=== PATIENT | male | born 1955 | race Caucasian/White ===

== ENCOUNTER → 2017-11-10 11:00 | Outpatient (CLI) | payer OTHER, SELFPAY ==
[2017-11-10 15:09] LABS: Alanine Aminotransferase 27 IU/L (21-72); Albumin 4.2 g/dL (3.5-5.0); Albumin Globulin Ratio 1.4 (1.0-2.8); Alkaline Phosphatase 66 U/L (38-126); Aspartate Aminotransferase 21 IU/L (17-59); BUN Creatinine Ratio 16.4 (6-22); Bilirubin Total 0.6 mg/dL (0.2-1.3); Blood Urea Nitrogen 23 mg/dL (9-20); Calcium 9.1 mg/dL (8.4-10.2); Carbon Dioxide 28 mmol/L (22-32); Chloride 104 mmol/L (98-107); Cholesterol 137 mg/dL (140-199); Estimated Glomerular Filt Rate 51.2 mL/min (>60); Globulin 2.9 g/dL (1.7-4.1); Glucose 73 mg/dL (80-110); HDL Cholesterol 44 mg/dL (40-60); HEMOLYSIS 17 (0-50); LDL Cholesterol Calculated 80 mg/dL (<100); Potassium 4.4 mmol/L (3.4-5.1); Sodium 142 mmol/L (137-145); Total Protein 7.1 g/dL (6.3-8.2); Triglycerides 65 mg/dL (35-150)
[2017-11-10 19:50] LABS: Creatinine Urine Random 261.3 mg/dL
[2017-11-10 19:54] LABS: Microalbumi Creatinin Ratio Ur 15.3 ug/mg CR (<30)
== END ==
PROVIDERS: Family Provider Physician Assistant; PCP Physician Assistant; Visit Provider Physician Assistant
DX: I10 Essential (primary) hypertension (principal); N28.9 Disorder of kidney and ureter, unspecified; E78.5 Hyperlipidemia, unspecified; Z12.5 Encounter for screening for malignant neoplasm of prostate
CPT/HCPCS: 36415; 80053; 80061; 82043; 82570; G0103

== ENCOUNTER → 2018-01-05 10:55 | Outpatient (CLI) | payer OTHER, SELFPAY ==
[2018-01-05 11:33] LABS: BUN Creatinine Ratio 16.9 (6-22); Blood Urea Nitrogen 22 mg/dL (9-20); Calcium 9.1 mg/dL (8.4-10.2); Carbon Dioxide 28 mmol/L (22-32); Chloride 106 mmol/L (98-107); Estimated Glomerular Filt Rate 55.8 mL/min (>60); Glucose 96 mg/dL (80-110); HEMOLYSIS 39 (0-50); Potassium 4.8 mmol/L (3.4-5.1); Sodium 143 mmol/L (137-145); Uric Acid 5.1 mg/dL (3.5-8.5)
== END ==
PROVIDERS: PCP Physician Assistant; Visit Provider Physician Assistant
DX: N28.9 Disorder of kidney and ureter, unspecified (principal); I10 Essential (primary) hypertension; E79.0 Hyperuricemia without signs of inflammatory arthritis and tophaceous disease
CPT/HCPCS: 36415; 80048; 84550

== ENCOUNTER → 2018-08-17 10:45 | Outpatient (CLI) | payer OTHER, SELFPAY ==
[2018-08-17 12:28] LABS: Alanine Aminotransferase 29 IU/L (21-72); Albumin 4.4 g/dL (3.5-5.0); Albumin Globulin Ratio 1.6 (1.0-2.8); Alkaline Phosphatase 68 U/L (38-126); Aspartate Aminotransferase 26 IU/L (17-59); BUN Creatinine Ratio 17.9 (6-22); Bilirubin Total 0.9 mg/dL (0.2-1.3); Blood Urea Nitrogen 25 mg/dL (9-20); Calcium 9.7 mg/dL (8.4-10.2); Carbon Dioxide 27 mmol/L (22-32); Chloride 103 mmol/L (98-107); Cholesterol 186 mg/dL (140-199); Globulin 2.8 g/dL (1.7-4.1); Glucose 86 mg/dL (80-110); HDL Cholesterol 56 mg/dL (40-60); HEMOLYSIS < 15 (0-50); LDL Cholesterol Calculated 115 mg/dL (<100); Potassium 4.7 mmol/L (3.4-5.1); Sodium 139 mmol/L (137-145); Total Protein 7.2 g/dL (6.3-8.2); Triglycerides 75 mg/dL (35-150)
[2018-08-17 12:30] LABS: Creatinine Urine Random 264.6 mg/dL
[2018-08-17 12:32] LABS: Microalbumi Creatinin Ratio Ur 6.8 ug/mg CR (<30); Microalbumin Urine Random 1.8 mg/dL (0-1.6)
== END ==
PROVIDERS: Family Provider Physician Assistant; PCP Physician Assistant; Visit Provider Physician Assistant
DX: E78.5 Hyperlipidemia, unspecified (principal); I10 Essential (primary) hypertension; N28.9 Disorder of kidney and ureter, unspecified
CPT/HCPCS: 36415; 80053; 80061; 82043; 82570; 84550

== ENCOUNTER → 2019-05-03 14:48 | Outpatient (CLI) | payer OTHER, SELFPAY ==
[2019-05-03 17:47] LABS: Hemoglobin A1C% w Est Avg Glu 5.6 % (4.0-6.0)
[2019-05-03 17:54] LABS: Alanine Aminotransferase 25 IU/L (<50); Albumin 4.3 g/dL (3.5-5.0); Albumin Globulin Ratio 1.5 (1.0-2.8); Alkaline Phosphatase 71 U/L (38-126); Aspartate Aminotransferase 26 IU/L (17-59); Bilirubin Total 0.5 mg/dL (0.2-1.3); Blood Urea Nitrogen 28 mg/dL (9-20); Calcium 9.6 mg/dL (8.4-10.2); Carbon Dioxide 29 mmol/L (22-32); Chloride 105 mmol/L (98-107); Globulin 2.8 g/dL (1.7-4.1); Glucose 80 mg/dL (80-110); HEMOLYSIS < 15 (0-50); Potassium 4.8 mmol/L (3.4-5.1); Sodium 142 mmol/L (137-145); Total Protein 7.1 g/dL (6.3-8.2)
== END ==
PROVIDERS: PCP Physician Assistant; Visit Provider Family Medicine
DX: Z76.89 Persons encountering health services in other specified circumstances (principal)
CPT/HCPCS: 36415; 80053; 83036; G0103

== ENCOUNTER → 2019-05-04 10:48 | Outpatient (CLI) | payer OTHER, SELFPAY ==
[2019-05-04 12:31] LABS: Cholesterol 160 mg/dL (140-199); HDL Cholesterol 52 mg/dL (40-60); LDL Cholesterol Calculated 90 mg/dL (<100); Triglycerides 89 mg/dL (35-150)
== END ==
PROVIDERS: PCP Physician Assistant; Visit Provider Family Medicine
DX: Z76.89 Persons encountering health services in other specified circumstances (principal)
CPT/HCPCS: 36415; 80061

== ENCOUNTER → 2019-10-04 11:05 | Outpatient (CLI) | payer MEDICARE, OTHER, SELFPAY ==
[2019-10-04 12:52] LABS: Alanine Aminotransferase 24 IU/L (<50); Albumin 4.3 g/dL (3.5-5.0); Albumin Globulin Ratio 1.6 (1.0-2.8); Alkaline Phosphatase 65 U/L (38-126); Aspartate Aminotransferase 29 IU/L (17-59); BUN Creatinine Ratio 16.2 (6-22); Bilirubin Total 0.9 mg/dL (0.2-1.3); Blood Urea Nitrogen 23 mg/dL (9-20); Calcium 9.7 mg/dL (8.4-10.2); Carbon Dioxide 26 mmol/L (22-32); Chloride 106 mmol/L (98-107); Cholesterol 163 mg/dL (140-199); Globulin 2.7 g/dL (1.7-4.1); Glucose 93 mg/dL (80-110); HDL Cholesterol 54 mg/dL (40-60); HEMOLYSIS < 15 (0-50); LDL Cholesterol Calculated 97 mg/dL (<100); Potassium 4.9 mmol/L (3.4-5.1); Sodium 138 mmol/L (137-145); Triglycerides 61 mg/dL (35-150)
== END ==
PROVIDERS: PCP Family Medicine; Referring Provider Family Medicine; Visit Provider Family Medicine
DX: E78.5 Hyperlipidemia, unspecified (principal); I10 Essential (primary) hypertension
CPT/HCPCS: 36415; 80053; 80061

== ENCOUNTER 2021-01-18 13:11 | Emergency (ER) | payer MEDICARE, OTHER, SELFPAY ==
[2021-01-18 13:18] VITALS: BP 137/85; PULSE 76; RESP 14; TEMP 36.4; O2SAT 100; BMI 27.5
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
[2021-01-18] MEDS: TET,DIPH,PERTUSS(ACELL),VAC/PF 0.5 ML SYRINGE IM (13:42)
--- NOTE | 2021-01-18 13:47 | DI.RAD.S_ITS ---
PROCEDURE: XR FINGER LT MIN 2V INDICATIONS: deep laceration, foreign body? TECHNIQUE: AP hand, 2 views of the 3rd finger(s) acquired. COMPARISON: None. FINDINGS: Bones: No fractures or dislocations. No suspicious bony lesions. Soft tissues: No suspicious soft tissue calcifications. IMPRESSION: No radiopaque foreign body. No visualized acute fracture or dislocation. However, if clinical concern and/or pain persist, short interval imaging followup in 7-10 days is recommended, as occult injury cannot be definitively excluded. Dictated by: Opal Payne M.D. on 01/18/2021 at 14:07 Approved by: Opal Payne M.D. on 01/18/2021 at 14:07
[2021-01-18] MEDS: LIDO 1%/SOD BICARB 8.4% (10ML) 10 ML SYRINGE INJ (13:48)
[2021-01-18 14:24] VITALS: BP 136/80; PULSE 70; RESP 18; O2SAT 96
== END 2021-01-18 14:26 | disposition home or self-care (01) ==
PROVIDERS: Emergency Provider Emergency Medicine; PCP Family Medicine
DX: S61.213A Laceration without foreign body of left middle finger without damage to nail, initial encounter (principal); W26.9XXA Contact with unspecified sharp object(s), initial encounter; Z23 Encounter for immunization
CPT/HCPCS: 12001; 64450; 73140; 90471; 99283; 99284; 90715

== ENCOUNTER → 2022-06-03 11:58 | Outpatient (CLI) | payer MEDICARE, OTHER, SELFPAY ==
[2022-06-03 13:29] LABS: Cholesterol 222 mg/dL (140-199); HDL Cholesterol 61 mg/dL (40-60); LDL Cholesterol Calculated 142 mg/dL (<100); Triglycerides 97 mg/dL (35-150)
[2022-06-03 13:30] LABS: Alanine Aminotransferase 22 IU/L (<50); Albumin 4.3 g/dL (3.5-5.0); Albumin Globulin Ratio 1.3 (1.0-2.8); Alkaline Phosphatase 67 U/L (38-126); Aspartate Aminotransferase 23 IU/L (17-59); BUN Creatinine Ratio 17.6 (6-22); Bilirubin Total 0.8 mg/dL (0.2-1.3); Blood Urea Nitrogen 26 mg/dL (9-20); Calcium 9.1 mg/dL (8.4-10.2); Carbon Dioxide 29 mmol/L (22-32); Chloride 105 mmol/L (98-107); Estimated Glomerular Filt Rate 52 mL/min (>60); Globulin 3.3 g/dL (1.7-4.1); Glucose 91 mg/dL (80-110); HEMOLYSIS < 15 (0-50); Potassium 4.5 mmol/L (3.4-5.1); Sodium 141 mmol/L (137-145); Total Protein 7.6 g/dL (6.3-8.2)
[2022-06-03 14:02] LABS: Prostate Specific Antigen Scrn 1.35 ng/mL (0.1-4.0)
== END ==
PROVIDERS: PCP Family Medicine; Referring Provider Family Medicine; Visit Provider Family Medicine
DX: I10 Essential (primary) hypertension (principal); Z12.5 Encounter for screening for malignant neoplasm of prostate; K21.9 Gastro-esophageal reflux disease without esophagitis; N28.9 Disorder of kidney and ureter, unspecified; Z00.00 Encounter for general adult medical examination without abnormal findings
CPT/HCPCS: 36415; 80053; 80061; G0103

== ENCOUNTER → 2022-06-25 14:46 | Outpatient (CLI) | payer MEDICARE, OTHER, SELFPAY ==
--- NOTE | 2022-06-25 14:49 | DI.RAD.S_ITS ---
PROCEDURE: XR KNEE LT 3V INDICATIONS: eval L knee pain TECHNIQUE: 3 views of the knee were acquired. COMPARISON: None. FINDINGS: Bones: Overall mild arthrosis, with osteophytes and early joint space loss. No displaced fracture. No dislocation. Soft tissues: No significant joint effusion. IMPRESSION: Mild arthrosis. No acute radiographic abnormality. If there is high concern for further derangement, consider MRI evaluation. Dictated by: Kamran Damon M.D. on 06/26/2022 at 10:55 Approved by: Kamran Damon M.D. on 06/26/2022 at 10:56
--- NOTE | 2022-06-25 18:42 | DI.US.S_ITS ---
PROCEDURE: US PERIPH VENOUS LOW EXTREM LT INDICATIONS: eval LLE pain/swelling, R/O DVT TECHNIQUE: Real-time imaging, as well as color and pulse Doppler interrogation, were performed of the lower extremity deep veins from the inguinal ligament to the popliteal fossa. COMPARISON: None. FINDINGS: The common femoral, femoral and popliteal veins are normally compressible, and free of intraluminal thrombus. Color and pulse Doppler demonstrate normal phasic intraluminal flow. There is normal augmentation response to distal compression maneuver. Small Jean cyst measuring 3.2 x 1.2 x 1.4 cm. IMPRESSION: 1. No DVT in the left lower extremity. 2. Small Jean cyst. Dictated by: Maria Esther Knutson M.D. on 06/25/2022 at 21:30 Approved by: Maria Esther Knutson M.D. on 06/25/2022 at 21:30
== END ==
PROVIDERS: PCP Family Medicine; Referring Provider Registered Nurse Diabetes Educator; Visit Provider Registered Nurse Diabetes Educator
DX: M17.12 Unilateral primary osteoarthritis, left knee (principal); M71.22 Synovial cyst of popliteal space [Baker], left knee; M79.605 Pain in left leg; M25.562 Pain in left knee
CPT/HCPCS: 73562; 93971

== ENCOUNTER 2023-02-18 10:53 | Emergency (ER) | payer MEDICARE, OTHER, SELFPAY ==
[2023-02-18 10:59] VITALS: BP 163/80; PULSE 62; RESP 16; TEMP 36.6; O2SAT 97; BMI 27.2
[2023-02-18 11:19] VITALS: BP 141/99; PULSE 65; O2SAT 95
--- NOTE | 2023-02-18 11:20 | ED_ITS ---
HPI - Male Genitourinary General Chief complaint: Urogenital-Male Stated complaint: sent by DR schaffer kidney stones Time Seen by Provider: 02/18/23 11:02 Source: patient Mode of arrival: Ambulatory History of Present Illness HPI Narrative: 67-year-old male presents for intermittent sharp, nonradiating flank pain. Patient states that last night he had a sharp left-sided flank pain, however several months ago he had a similar pain on the right flank. He spoke to his doctor, stating he was concerned that he may have a kidney stone. His doctor referred him to the emergency department for evaluation. Currently pain free. Denies nausea, vomiting, decreased urination, hematuria. No medications taken at home for symptoms. Related Data Home Medications Medication Instructions Recorded Confirmed aspirin 81 mg tablet,delayed 81 mg PO QDAY #30 tabs 12/26/15 12/20/22 release docusate sodium 50 mg capsule 50 mg PO DAILY 05/03/19 12/20/22 Previous Rx's Medication Instructions Recorded famotidine 20 mg tablet (Acid 20 mg PO DAILY #90 tabs 05/30/22 Controller) metoprolol tartrate 25 mg tablet See Rx Instructions .Route 05/30/22 .COMPLEX #180 tabs nifedipine 30 mg tablet,extended See Rx Instructions .Route 05/30/22 release 24 hr .COMPLEX #90 tabs olmesartan 40 mg tablet 40 mg PO DAILY #90 tabs 05/30/22 lovastatin 20 mg tablet 20 mg PO QPM hyperlipidemia #90 06/26/22 tabs tamsulosin 0.4 mg capsule (Flomax) 0.4 mg PO DAILY #30 caps 02/18/23 Allergies Allergy/AdvReac Type Severity Reaction Status Date / Time amlodipine [AMLODIPINE] Allergy Intermediate Peripheral Verified 02/18/23 11:03 edema hydrochlorothiazide Allergy Intermediate elevated Verified 02/18/23 11:03 [HYDROCHLOROTHIAZIDE] creatinine NSAIDS (Non-Steroidal Allergy Intermediate elevated Verified 02/18/23 11:03 Anti-Inflamma creatinine [NSAIDS (NON-STEROIDAL ANTI-INFLAMMA] simvastatin [SIMVASTATIN] AdvReac Intermediate Diffuse Verified 02/18/23 11:03 myalgias Review of Systems Review of Systems Narrative: Negative except as noted above Patient History Medical History Esophagitis, reflux (~03/2015) GERD (gastroesophageal reflux disease) Hyperlipemia (Unknown) Hypertension (Unknown) Left knee pain Preventative health care Renal insufficiency (~03/2017) Surgical History Hx of hernia repair (Unknown) Social History Smoking Status: Former smoker second hand exposure: No alcohol intake: current substance use type: does not use Smoking Status: Former smoker alcohol intake frequency: holidays/special occasions only Substance Use Type: marijuana Exam Initial Vital Signs Initial Vital Signs: Vital Signs Temperature 97.9 F 02/18/23 10:59 Pulse Rate 62 02/18/23 10:59 Respiratory Rate 16 02/18/23 10:59 Blood Pressure 163/80 H 02/18/23 10:59 Pulse Oximetry 97 02/18/23 10:59 Oxygen Delivery Method Room Air 02/18/23 10:59 Const: Awake, alert, no acute distress, nontoxic appearing Eyes: PERRL, EOMI, conjunctiva normal ENT: Atraumatic, dentition normal, mucous membranes moist Cardiac: regular rate, regular rhythm RESP: unlabored, clear bilaterally, no wheezing GI: Atraumatic, soft, nontender, nondistended, no rebound, no guarding MSK: Atraumatic, full range of motion, pulses equal Skin: Warm, Dry, intact, no rashes Neuro: AO x3, CN II-XII grossly intact, moves all extremities Psych: affect normal, mood normal, not suicidal, not homicidal Course Course Course Narrative: Well appearing patient with intermittent flank pain. Currently pain free, physical exam is unremarkable, no obvious abnormalities. Will order labs, urine, CT scan. Patient declines pain medication at this time. Orders Ordered: ED Orders 02/18/23 11:08 CBC Auto Diff [Complete Blood Count AUTO DIFF] Stat CMP [Comprehensive Metabolic Panel] Stat 02/18/23 11:14 Ictotest Urine Stat UA Complete [Urinalysis and Microscopic] Stat 02/18/23 11:40 CT abdomen pelvis wo con Stat Reevaluation(s) Reevaluation #1: Labs negative for acute findings. Patient appears to have mild chronic renal insufficiency, at baseline. CT shows 1-2mm nonobstructing renal stones, no other acute findings. Question if patient is passing small stones, however since none are currently in the ureter cannot say for sure. Patient informed of all lab and imaging results. Counseled to take tylenol and continue to drink plenty of fluids. Recommended flomax in case patient does start to pass kidney stones. Urology follow up recommended and referral provided. Vital Signs Vital signs: Vital Signs - 8 hr 02/18/23 10:59 02/18/23 11:19 02/18/23 11:19 Temperature 97.9 F Pulse Rate 62 65 Respiratory Rate 16 Blood Pressure 163/80 H 141/99 H Pulse Oximetry 97 95 Oxygen Delivery Method Room Air 02/18/23 11:30 02/18/23 11:30 02/18/23 11:45 Temperature Pulse Rate 64 Respiratory Rate Blood Pressure 134/86 130/82 Pulse Oximetry 93 Oxygen Delivery Method 02/18/23 11:45 02/18/23 12:00 02/18/23 12:00 Temperature Pulse Rate 69 67 Respiratory Rate Blood Pressure 139/86 Pulse Oximetry 95 94 Oxygen Delivery Method 02/18/23 12:30 02/18/23 12:30 Temperature Pulse Rate 62 Respiratory Rate Blood Pressure 154/91 H Pulse Oximetry 96 Oxygen Delivery Method MDM - Male Genitourinary Differential Diagnosis Differential diagnosis: Likely urinary tract infection, acute retention of urine and inguinal hernia Lab Data 02/18/23 11:08 02/18/23 11:08 Labs: Lab Results 02/18/23 02/18/23 Range/Units 11:08 11:14 WBC 7.3 (4.5-11.0) X10^3/uL RBC 5.02 (4.5-5.9) X10^6/uL Hgb 15.0 (13.5-17.5) g/dL Hct 44.6 (41-53) % MCV 88.9 (80-100) fL MCH 29.9 (26-34) PG MCHC 33.6 (30-36) % RDW 14.4 (11.6-14.8) % Plt Count 232 (150-400) X10^3/uL Neut % (Auto) 69.4 (50-75) % Lymph % (Auto) 13.5 L (25-40) % [place] % (Auto) 11.2 (3-14) % Eos % (Auto) 5.4 H (2-4) % Baso % (Auto) 0.5 (0-2) % Neut # (Auto) 5000 (1904-1938) /uL Lymph # (Auto) 1000 L (4806-1051) /uL [place] # (Auto) 800 (0-900) /uL Eos # (Auto) 400 (0-450) /uL Baso # (Auto) 0 (0-100) /uL Sodium 140 (137-145) mmol/L Potassium 4.5 (3.4-5.1) mmol/L Chloride 104 (98-107) mmol/L Carbon Dioxide 29 (22-32) mmol/L BUN 26 H (9-20) mg/dL Creatinine 1.54 H (0.66-1.25) mg/dL Estimated GFR 49 L (>60) mL/min BUN/Creatinine Ratio 16.9 (6-22) Glucose 109 (80-110) mg/dL Calcium 9.9 (8.4-10.2) mg/dL Total Bilirubin 0.7 (0.2-1.3) mg/dL AST 24 (17-59) IU/L ALT 18 (<50) IU/L Alkaline Phosphatase 56 (38-126) U/L Total Protein 7.5 (6.3-8.2) g/dL Albumin 4.3 (3.5-5.0) g/dL Globulin 3.2 (1.7-4.1) g/dL Albumin/Globulin Ratio 1.3 (1.0-2.8) Urine Color Yellow Urine Appearance Clear Urine pH 5.0 (4.5-8.0) Ur Specific [place] 1.025 (1.000-1.035) Urine Protein Trace H (Negative) Urine Glucose (UA) Negative (Negative) g/dL Urine Ketones Trace H (NEGATIVE) Urine Occult Blood Negative (Negative) Urine Nitrate Negative (Negative) Urine Bilirubin Negative (NEGATIVE) Ur Bilirubin Confirm Negative (Negative) Urine Urobilinogen 0.2 (0.2) E.U./dL Ur Leukocyte Esterase Negative (NEGATIVE) Urine RBC None seen (0-5/HPF) Urine WBC 0-1/hpf (0-5/HPF) Ur Squamous Epith Cells 0-1 /hpf (0-5/HPF) Urine Bacteria None seen (None) Urine Mucus 1+ H (Negative) Ur Culture Indicated? Cult not indicated Urine Dip Bedside Urine Glucose Negative Bedside Urine Bilirubin + 1 Bedside Urine Ketone - Negative Urine Specific [place] 1.025 Bedside Urine Occult Blood - Negative Bedside Urine pH 6.0 Bedside Urine Protein +/- 15 Bedside Urine Urobilinogen - Negative Bedside Urine Nitrite - Negative Bedside Urine Leukocytes +/- 15 Esterase Discharge Plan Departure Patient Disposition: Home Clinical Impression: Bilateral renal stones Instructions: DI for Kidney Stones Prescriptions: New tamsulosin [Flomax] 0.4 mg capsule 0.4 mg PO DAILY Qty: 30 0RF No Action aspirin 81 MG tablet,delayed release (DR/EC) 81 mg PO QDAY Qty: 30 lovastatin 20 mg tablet 20 mg PO QPM MDD 20mg Qty: 90 3RF Rx Instructions: Take one tablet by mouth at bedtime docusate sodium 50 mg capsule 50 mg PO DAILY famotidine [Acid Controller] 20 mg tablet 20 mg PO DAILY Qty: 90 3RF metoprolol tartrate 25 mg tablet See Rx Instructions .ROUTE .COMPLEX Qty: 180 3RF Dose Instruction: TAKE 1 TABLET BY MOUTH TWICE DAILY Rx Instructions: TAKE 1 TABLET BY MOUTH TWICE DAILY nifedipine 30 mg tablet extended release 24hr See Rx Instructions .ROUTE .COMPLEX Qty: 90 3RF Dose Instruction: TAKE 1 TABLET BY MOUTH DAILY Rx Instructions: TAKE 1 TABLET BY MOUTH DAILY olmesartan 40 mg tablet 40 mg PO DAILY Qty: 90 3RF Referrals: Dustin Hare DO [Primary Care Provider] - Abisai Mathur MD [Physician] - Stand Alone Forms: Patient Portal/API
[2023-02-18 11:25] LABS: Add Manual Diff / Slide Review NO; Basophils Absolute Auto 0 /uL (0-100); Basophils Percent Auto 0.5 % (0-2); Eosinophils Absolute Auto 400 /uL (0-450); Eosinophils Percent Auto 5.4 % (2-4); Hematocrit 44.6 % (41-53); Lymphocytes Absolute Auto 1000 /uL (1100-4500); Lymphocytes Percent Auto 13.5 % (25-40); Mean Corpuscular HGB Conc 33.6 % (30-36); Mean Corpuscular Hemoglobin 29.9 PG (26-34); Mean Corpuscular Volume 88.9 fL (80-100); Monocytes Absolute Auto 800 /uL (0-900); Monocytes Percent Auto 11.2 % (3-14); Neutrophils Absolute Auto 5000 /uL (1500-7000); Neutrophils Percent Auto 69.4 % (50-75); Platelet Count 232 X10^3/uL (150-400); Red Blood Cell Count 5.02 X10^6/uL (4.5-5.9); Red Cell Distribution Width 14.4 % (11.6-14.8); White Blood Cell Count 7.3 X10^3/uL (4.5-11.0)
[2023-02-18 11:26] LABS: Appearance Urine UA CLEAR; Bilirubin Urine UA NEGATIVE (NEGATIVE); Color Urine UA YELLOW; Glucose Urine UA NEGATIVE (Negative); Ketones Urine UA TRACE (NEGATIVE); Leukocyte Esterase Urine UA NEGATIVE (NEGATIVE); Nitrite Urine UA NEGATIVE (Negative); Occult Blood Urine UA NEGATIVE (Negative); Protein Urine UA TRACE (Negative); Specific Gravity Urine UA 1.025 (1.000-1.035); Urobilinogen Urine UA 0.2 E.U./dL (0.2)
[2023-02-18 11:27] LABS: Ictotest Urine Negative (Negative)
[2023-02-18 11:30] VITALS: BP 134/86; PULSE 64; O2SAT 93
[2023-02-18 11:31] LABS: Bacteria Urine None Seen; Culture Indicated Urine Cult Not Indicated; Mucus Urine 1+ (Negative); RBC Urine None Seen (0-5/HPF); Squamous Epithelial Cell Urine 0-1 /HPF (0-5/HPF); WBC Urine 0-1/HPF (0-5/HPF)
[2023-02-18 11:37] LABS: Alanine Aminotransferase 18 IU/L (<50); Albumin 4.3 g/dL (3.5-5.0); Albumin Globulin Ratio 1.3 (1.0-2.8); Alkaline Phosphatase 56 U/L (38-126); Aspartate Aminotransferase 24 IU/L (17-59); BUN Creatinine Ratio 16.9 (6-22); Bilirubin Total 0.7 mg/dL (0.2-1.3); Blood Urea Nitrogen 26 mg/dL (9-20); Calcium 9.9 mg/dL (8.4-10.2); Carbon Dioxide 29 mmol/L (22-32); Chloride 104 mmol/L (98-107); Estimated Glomerular Filt Rate 49 mL/min (>60); Globulin 3.2 g/dL (1.7-4.1); Glucose 109 mg/dL (80-110); HEMOLYSIS 28 (0-50); Potassium 4.5 mmol/L (3.4-5.1); Sodium 140 mmol/L (137-145); Total Protein 7.5 g/dL (6.3-8.2)
--- NOTE | 2023-02-18 11:40 | DI.CT.S_ITS ---
PROCEDURE: CT ABDOMEN PELVIS WO CON INDICATIONS: Left flank pain, poss stone? TECHNIQUE: Axial sections were acquired from the lung bases to the pubic symphysis. Coronal and sagittal reformats were performed. For radiation dose reduction, the following was used: automated exposure control, adjustment of mA and/or kV according to patient size. COMPARISON: None. FINDINGS: Image quality: Excellent. Lung bases: Unremarkable. Heart: No significant findings. URINARY: Right Kidney: Nonobstructive punctate 1-2 mm calculus in the superior pole. Extrarenal pelvis. No hydronephrosis Right Ureter: No hydroureter. Left Kidney: Nonobstructed punctate 1-2 mm calculus in the inferior pole. Extra renal pelvis. No hydronephrosis Left Ureter: No hydroureter. Bladder: Bladder is decompressed limiting evaluation. No intraluminal calcified stones. ABDOMEN: Liver: Left hepatic lobe 3.9 cm simple cyst. Right hepatic lobe punctate calcification. Gallbladder: Unremarkable. Biliary ducts: Unremarkable. Pancreas: Unremarkable. Spleen: Unremarkable. Adrenal Glands: Unremarkable. Stomach and Bowel: Small hiatal hernia. Small bowel loops and colon are unremarkable. Rectosigmoid diverticulosis without evidence of acute diverticulitis. Peritoneum: No abnormal intraperitoneal fluid. No free air. Ventral Wall: No hernia. Abdominal Nodes: No enlarged retroperitoneal or mesenteric lymph nodes. Vessels: Aorta and inferior vena cava are normal in size. PELVIS: Pelvic Organs: Unremarkable. Pelvic Nodes: Unremarkable. Miscellaneous: No inguinal hernias are seen. Bones: No acute or suspicious osseous abnormality. IMPRESSION: Nonobstructing bilateral punctate 1-2 mm calculi. No hydroureteronephrosis. Rectosigmoid diverticulosis without CT evidence of acute diverticulitis. Incidental findings as above. Dictated by: Meaghan Mendoza M.D. on 02/18/2023 at 12:00 Approved by: Meaghan Mendoza M.D. on 02/18/2023 at 12:11
[2023-02-18 11:45] VITALS: BP 130/82; PULSE 69; O2SAT 95
[2023-02-18 12:00] VITALS: BP 139/86; PULSE 67; O2SAT 94
[2023-02-18 12:30] VITALS: BP 154/91; PULSE 62; O2SAT 96
== END 2023-02-18 12:41 | disposition home or self-care (01) ==
PROVIDERS: Emergency Provider Emergency Medicine; PCP Family Medicine
DX: N20.0 Calculus of kidney (principal)
CPT/HCPCS: 36415; 74176; 80053; 81001; 81003; 85025; 99283; 99284

== ENCOUNTER → 2023-05-19 11:51 | Outpatient (CLI) | payer MEDICARE, OTHER, SELFPAY ==
[2023-05-19 13:30] LABS: Alanine Aminotransferase 18 IU/L (<50); Albumin 3.8 g/dL (3.5-5.0); Albumin Globulin Ratio 1.3 (1.0-2.8); Alkaline Phosphatase 66 U/L (38-126); Aspartate Aminotransferase 21 IU/L (17-59); BUN Creatinine Ratio 18.9 (6-22); Bilirubin Total 0.8 mg/dL (0.2-1.3); Blood Urea Nitrogen 25 mg/dL (9-20); Calcium 9.3 mg/dL (8.4-10.2); Carbon Dioxide 25 mmol/L (22-32); Chloride 104 mmol/L (98-107); Cholesterol 145 mg/dL (140-199); Estimated Glomerular Filt Rate 59 mL/min (>60); Globulin 2.9 g/dL (1.7-4.1); Glucose 91 mg/dL (80-110); HDL Cholesterol 52 mg/dL (40-60); HEMOLYSIS < 15 (0-50); LDL Cholesterol Calculated 78 mg/dL (<100); Potassium 4.4 mmol/L (3.4-5.1); Sodium 137 mmol/L (137-145); Total Protein 6.7 g/dL (6.3-8.2); Triglycerides 77 mg/dL (35-150)
== END ==
PROVIDERS: PCP Family Medicine; Referring Provider Family Medicine; Visit Provider Family Medicine
DX: E78.5 Hyperlipidemia, unspecified (principal); I10 Essential (primary) hypertension
CPT/HCPCS: 36415; 80053; 80061

== ENCOUNTER 2024-03-16 06:44 | Day surgery (SDC) | payer MEDICARE, OTHER, SELFPAY ==
--- NOTE | 2024-03-16 | PATH_ITS ---
[facility] Accession Number: [id number] No. of containers..01 Tissue . 01 Material submitted: . colon - ASCENDING COLON POLYP . 01 Diagnosis: A: ASCENDING COLON, POLYPECTOMY: Tubular adenoma. [facility] 03/19/2024 1327 Local . 01 Electronically signed: . Elyssa Jacques MD, Pathologist NPI- [id number] . 01 Gross description: . Received in formalin with two patient identifiers and ascending colon polyp, is a single oneill soft tissue fragment 0.8 x 0.5 x 0.4 cm. Inked blue, bisected, and submitted entirely in cassette A1. ([id number]) /[facility] 03/17/2024 1026 Local . 01 Pathologist provided ICD-10: Z12.11 . 01 CPT . 340329 Specimen Comment: A courtesy copy of this report has been sent to [phone] Performed at: [address] [facility] [address], [place], [place] [id number] MD Hari Bergeron MD Phone: [phone]
[2024-03-16 07:21] VITALS: BP 138/83; PULSE 62; RESP 17; TEMP 36.4; O2SAT 92
--- NOTE | 2024-03-16 07:49 | P.HP_ITS ---
History of Present Illness History of Present Illness Date Patient Seen: 03/16/24 Time Patient Seen: 07:49 Chief complaint: [facility] [place]: 68-year-old male here for screening colonoscopy. No abdominal concerns today. Last colonoscopy 2013 normal. Thinks his father had cancer of some sort but not necessarily colon cancer. [facility], [facility] Medical History Medicare annual wellness visit, subsequent Encounter for well adult exam without abnormal findings Left knee pain Preventative health care GERD (gastroesophageal reflux disease) Renal insufficiency (~03/2017) Esophagitis, reflux (~03/2015) Hyperlipemia (Unknown) Hypertension (Unknown) Surgical History Hx of hernia repair (Unknown) Social History Smoking Status: Former smoker second hand exposure: No alcohol intake: current substance use type: does not use Meds Home Medications and Allergies Home Medications Medication Instructions Recorded Confirmed Type aspirin 81 mg tablet,delayed 81 mg PO QDAY #30 tabs 12/26/15 03/16/24 History release olmesartan 40 mg tablet 40 mg PO DAILY #90 tabs 05/30/23 03/16/24 Rx lovastatin 20 mg tablet 20 mg PO QPM hyperlipidemia #90 06/02/23 03/16/24 Rx tabs docusate sodium [Stool Softener] PO 07/03/23 01/02/24 History famotidine 20 mg tablet (Acid 20 mg PO DAILY PRN reflux 10/30/23 03/16/24 History Controller) omeprazole 20 mg capsule,delayed 20 mg PO DAILY 10/30/23 03/16/24 History release sodium,potassium,mag sulfates 17.5 See Rx Instructions PO .COMPLEX 02/05/24 Rx gram-3.13 gram-1.6 gram oral soln #354 mL (Suprep Bowel Prep Kit) metoprolol tartrate 25 mg tablet See Rx Instructions .Route 03/09/24 03/16/24 Rx .COMPLEX #180 tabs nifedipine 30 mg tablet,extended See Rx Instructions .Route 03/09/24 03/16/24 Rx release 24 hr .COMPLEX #90 tabs Allergies Allergy/AdvReac Type Severity Reaction Status Date / Time amlodipine [AMLODIPINE] Allergy Intermediate Peripheral Verified 03/16/24 07:17 edema hydrochlorothiazide Allergy Intermediate elevated Verified 03/16/24 07:17 [HYDROCHLOROTHIAZIDE] creatinine NSAIDS (Non-Steroidal Allergy Intermediate elevated Verified 03/16/24 07:17 Anti-Inflamma creatinine [NSAIDS (NON-STEROIDAL ANTI-INFLAMMA] simvastatin [SIMVASTATIN] AdvReac Intermediate Diffuse Verified 03/16/24 07:17 myalgias Exam Vital Signs (past 8 hours): - 03/16/24 07:21 Temperature 97.5 F L Pulse Rate 62 Respiratory Rate 17 Blood Pressure 138/83 Pulse Oximetry 92 Oxygen Delivery Method Room Air Oxygen Delivery Method Room Air Narrative Exam Narrative: General adult man alert oriented no acute distress Chest nonlabored respiration Extremities warm well perfused Assessment & Plan Assessment & Plan narrative: The patient requires colorectal screening and colonoscopy is recommended. Technical details were discussed. Risks, benefits, alternatives explained. Risks including but not limited to myocardial infarction, aspiration, bleeding, pain, missed lesion, incomplete examination, need for further radiographic studies, intestinal injury, and need for major abdominal surgery were discussed. All questions were answered to their satisfaction, and they are in agreement with this plan. Time-Based Coding :: [TOTAL MINUTES] spent with patient and on the chart (including review of chart, obtaining history, exam, reviewing outside data, placing orders, documenting exam and treatment plan, and counseling patient) on [DATE].
[2024-03-16 08:21] VITALS: BP 119/79; PULSE 64; RESP 16; TEMP 36.5; O2SAT 96
[2024-03-16 08:26] VITALS: BP 106/69; PULSE 65; RESP 21; O2SAT 93
--- NOTE | 2024-03-16 08:29 | P.OP.COLON_ITS ---
Operative Date/Time/Diagnoses Date of procedure: 03/16/24 Time of procedure: 08:29 Pre-op diagnosis: Colorectal screening Post-op diagnosis: other (Colonic polyp x1) Procedure & Clinicians Study performed: Colonoscopy and polypectomy Same procedure as scheduled: Yes Indications: Screening Surgeon: Mike Palafox Procedure Notes Procedure in detail: The history and physical was performed/updated and the patient is ASA class is 2. The procedure was discussed in detail with the patient. Potential risks complications including infection, bleeding, missed diagnosis, perforation, need for surgery, and were explained. Their questions were answered and informed consent was obtained. Patient was brought to the procedure room and placed standard monitoring equipment. The patient's vital signs were monitored continuously throughout the entire procedure. Prior to starting time-out was performed. The patient was placed in the left lateral recumbent position. Procedural sedation was administered by anesthesia. Examination began with a thorough inspection of the perianal area there was no evidence of fissures, fistulae, external hemorrhoids or cutaneous malignancy. The colonoscopy scope was then placed into the anal canal and was advanced to the cecum, which was identified by the ileocecal valve, the appendiceal orifice and the confluence of the taenia. The scope was then slowly withdrawn examining colon thoroughly in all directions, irrigating it of any residual stool. The scope was retroflexed within the rectum The patient tolerated the procedure well. They will be discharged once criteria are met. The prep was of good/excellent quality. The withdrawl time was 9 minutes. FINDINGS * Ascending colon 5 mm sessile polyp removed using cold snare just distal to the ileocecal valve * Butler diverticulosis Specimen(s): other (Ascending colon polyp) Impression: Colonic polyp x1 Post-procedure Recommendations: High fiber diet Plan for aftercare: Follow up dependent on pathology findings likely 5 years Disposition: same day surgery
[2024-03-16 08:34] VITALS: BP 105/73; PULSE 61; RESP 12; TEMP 36.6; O2SAT 95
[2024-03-16 08:37] VITALS: BP 108/80; PULSE 58; RESP 15; TEMP 36.6; O2SAT 95
== END 2024-03-16 08:46 | disposition home or self-care (01) ==
PROVIDERS: PCP Family Medicine; Referring Provider Surgery; Visit Provider Surgery
PROC: 0DJD8ZZ Inspection of Lower Intestinal Tract, Via Natural or Artificial Opening Endoscopic (ICD-10-PCS; CPT 45378; principal; 2024-03-16 08:00)
DX: Z12.11 Encounter for screening for malignant neoplasm of colon (principal); K57.30 Diverticulosis of large intestine without perforation or abscess without bleeding; D12.2 Benign neoplasm of ascending colon
CPT/HCPCS: 45385; J2704

== ENCOUNTER → 2024-07-02 09:41 | Outpatient (CLI) | payer MEDICARE, OTHER, SELFPAY ==
[2024-07-02 10:24] LABS: Add Manual Diff / Slide Review NO; Basophils Absolute Auto 100 /uL (0-100); Basophils Percent Auto 1.2 % (0-2); Eosinophils Absolute Auto 500 /uL (0-450); Eosinophils Percent Auto 7.2 % (2-4); Hematocrit 47.1 % (41-53); Hemoglobin 15.5 g/dL (13.5-17.5); Lymphocytes Absolute Auto 1100 /uL (1100-4500); Lymphocytes Percent Auto 16.8 % (25-40); Mean Corpuscular HGB Conc 32.9 % (30-36); Mean Corpuscular Hemoglobin 29.6 PG (26-34); Monocytes Absolute Auto 800 /uL (0-900); Monocytes Percent Auto 12.4 % (3-14); Neutrophils Absolute Auto 4200 /uL (1500-7000); Neutrophils Percent Auto 62.4 % (50-75); Platelet Count 228 X10^3/uL (150-400); Red Blood Cell Count 5.23 X10^6/uL (4.5-5.9); Red Cell Distribution Width 14.5 % (11.6-14.8); White Blood Cell Count 6.8 X10^3/uL (4.5-11.0)
[2024-07-02 11:12] LABS: Alanine Aminotransferase 23 IU/L (<50); Albumin 4.2 g/dL (3.5-5.0); Albumin Globulin Ratio 1.6 (1.0-2.8); Alkaline Phosphatase 64 U/L (38-126); Aspartate Aminotransferase 26 IU/L (17-59); Bilirubin Total 0.7 mg/dL (0.2-1.3); Blood Urea Nitrogen 23 mg/dL (9-20); Calcium 9.9 mg/dL (8.4-10.2); Carbon Dioxide 25 mmol/L (22-32); Chloride 108 mmol/L (98-107); Cholesterol 194 mg/dL (140-199); Estimated Glomerular Filt Rate 52 mL/min (>60); Globulin 2.7 g/dL (1.7-4.1); Glucose 100 mg/dL (80-110); HDL Cholesterol 61 mg/dL (40-60); HEMOLYSIS < 15 (0-50); LDL Cholesterol Calculated 120 mg/dL (<100); Potassium 4.7 mmol/L (3.4-5.1); Sodium 141 mmol/L (137-145); Total Protein 6.9 g/dL (6.3-8.2); Triglycerides 65 mg/dL (35-150)
[2024-07-02 11:43] LABS: TSH w/ Reflex to FT4 5.33 uIU/mL (0.47-4.68)
[2024-07-02 12:54] LABS: Free T4, Direct Thyroxine 0.86 ng/dL (0.78-2.19)
== END ==
PROVIDERS: PCP Family Medicine; Referring Provider Family Medicine; Visit Provider Family Medicine
DX: E78.5 Hyperlipidemia, unspecified (principal); I10 Essential (primary) hypertension; N28.9 Disorder of kidney and ureter, unspecified; Z79.899 Other long term (current) drug therapy
CPT/HCPCS: 36415; 80053; 80061; 84439; 84443; 85025

== ENCOUNTER → 2025-01-26 10:15 | Outpatient (CLI) | payer MEDICARE, OTHER, SELFPAY ==
[2025-01-26 10:33] LABS: Add Manual Diff / Slide Review NO; Hematocrit 43.2 % (41-53); Hemoglobin 14.8 g/dL (13.5-17.5); Lymphocytes Absolute Auto 1100 /uL (1100-4500); Mean Corpuscular HGB Conc 34.2 % (30-36); Mean Corpuscular Hemoglobin 30.1 PG (26-34); Mean Corpuscular Volume 88.2 fL (80-100); Platelet Count 235 X10^3/uL (150-400)
[2025-01-26 10:40] LABS: Hemoglobin A1C% w Est Avg Glu 5.9 % (4.0-6.0)
[2025-01-26 10:52] LABS: Alanine Aminotransferase 18 IU/L (<50); Albumin 4.2 g/dL (3.5-5.0); Albumin Globulin Ratio 1.5 (1.0-2.8); Alkaline Phosphatase 63 U/L (38-126); Blood Urea Nitrogen 25 mg/dL (9-20); Calcium 9.4 mg/dL (8.4-10.2); Carbon Dioxide 27 mmol/L (22-32); Chloride 105 mmol/L (98-107); Estimated Glomerular Filt Rate 55 mL/min (>60); Globulin 2.8 g/dL (1.7-4.1); Glucose 101 mg/dL (70-99); HEMOLYSIS < 15 (0-50); Potassium 4.5 mmol/L (3.4-5.1); Sodium 139 mmol/L (137-145); Total Protein 7.0 g/dL (6.3-8.2)
[2025-01-26 11:09] LABS: Free T4, Direct Thyroxine 1.11 ng/dL (0.78-2.19)
[2025-01-26 11:23] LABS: Thyroid Stimulating Hormone 3.15 uIU/mL (0.47-4.68)
[2025-01-26 11:42] LABS: Vitamin B12 370 pg/mL (239-931)
== END ==
PROVIDERS: PCP Family Medicine; Referring Provider Family Medicine; Visit Provider Family Medicine
DX: Z12.5 Encounter for screening for malignant neoplasm of prostate (principal); E03.9 Hypothyroidism, unspecified; K21.9 Gastro-esophageal reflux disease without esophagitis; Z87.442 Personal history of urinary calculi; I10 Essential (primary) hypertension; E78.5 Hyperlipidemia, unspecified; N28.9 Disorder of kidney and ureter, unspecified
CPT/HCPCS: 36415; 80053; 82607; 83036; 84439; 84443; 85025; G0103